=== PATIENT | female | born 1995 | race Caucasian/White ===

== ENCOUNTER 2017-07-31 01:42 | Observation (INO) | payer OTHER ==
[2017-07-31] MEDS ORDERED: IV RINGERS,LACTATED 1000ML 1,000 ML IV (01:45)
[2017-07-31 02:12] LABS: BILIRUBIN,URINE NEGATIVE (NEG); CLARITY,URINE CLEAR; COLOR,URINE YELLOW; GLUCOSE,URINE NEGATIVE (NEG); NITRITE,URINE NEGATIVE (NEG); PH,URINE 6.5; PROTEIN,URINE NEGATIVE (NEG-TRACE); UROBILINOGEN,URINE 0.2 mg/dL (0.2 mg/dL)
[2017-07-31 02:18] LABS: BARBITURATES NEG (NEG); BENZODIAZEPINES NEG (NEG); CANNABINOIDS NEG (NEG); COCAINE NEG (NEG); METHADONE NEG (NEG); OPIATES NEG (NEG); PHENCYCLIDINE NEG (NEG)
[2017-07-31 02:21] LABS: BACTERIA,URINE FEW /HPF (0-FEW); RBC,URINE 0 /HPF (0-2); SQUAMOUS EPITHELIAL CELL,UR FEW /LPF; WBC,URINE OCC /HPF (0-4)
[2017-07-31 02:22] LABS: AMPHETAMINE/METHAMPHETAMINE NEG (NEG); ETHANOL, URINE NEG (NEG)
[2017-07-31] MEDS: oxyCODONE/APAP 5/325 1 TAB TABLET PO (02:52)
== END 2017-07-31 03:05 | disposition home or self-care (01) ==
LOC: 3 SO LND 01:42
DX: O26.893 Other specified pregnancy related conditions, third trimester (principal); R10.9 Unspecified abdominal pain; Z3A.34 34 weeks gestation of pregnancy
CPT/HCPCS: 80307; 81001; G0378; G0379